=== PATIENT | female | born 1955 | race Caucasian/White ===

== ENCOUNTER 2018-09-02 13:57 | Emergency (ER) | payer OTHER ==
[2018-09-02] MEDS: HYDROCODONE/APAP (5/325) TAB PO (16:43)
== END 2018-09-02 18:26 | disposition home or self-care (01) ==
LOC: FTE 13:57
DX: S13.4XXA Sprain of ligaments of cervical spine, initial encounter (principal); V49.50XA Passenger injured in collision with unspecified motor vehicles in traffic accident, initial encounter
CPT/HCPCS: 71045; 72125; 73110-RT; 99284-25